=== PATIENT | female | born 1980 | race Caucasian/White ===

== ENCOUNTER → 2017-04-28 | Outpatient (CLI) | payer OTHER | LOC: FIMAGING 09:00 | PROVIDERS: ATTEND Advanced Practice Midwife | DX: O09.513 Supervision of elderly primigravida, third trimester (principal); O36.5931 Maternal care for other known or suspected poor fetal growth, third trimester, fetus 1; O34.219 Maternal care for unspecified type scar from previous cesarean delivery; O44.43 Low lying placenta NOS or without hemorrhage, third trimester; Z3A.32 32 weeks gestation of pregnancy ==

== ENCOUNTER 2017-07-11 12:35 | Emergency (ER) | payer OTHER ==
--- NOTE | 2017-07-11 14:31 | EDPHY ---
H & P Stated Complaint: yellow productive cough, chest congestion x 3 days Time Seen by Provider: 07/11/17 14:19 HPI/ROS: CHIEF COMPLAINT: Cough, fever HISTORY OF PRESENT ILLNESS: Patient is a 37-year-old woman who is 4 weeks who presents to the emergency department complaining of a cough, fever up to 101 and mild chest burning for 3 days. Her cough has been productive for yellow sputum. She denies pleuritic pain. No leg swelling. No travel. No smoking. No pulmonary history. She was seen at the urgent care who was concerned about DVT and referred her here. She has a mildly sore throat. She has anterior lymphadenopathy. So moderate muscle aches particularly in the neck. REVIEW OF SYSTEMS: Constitutional: denies: chills, fever, recent illness, recent injury EENTM: denies: blurred vision, double vision, nose congestion Respiratory: See HPI Cardiac: denies: chest pain, irregular heart rate, lightheadedness, palpitations Gastrointestinal/Abdominal: denies: abdominal pain, diarrhea, nausea, vomiting, blood streaked stools Genitourinary: denies: dysuria, frequency, hematuria, pain Musculoskeletal: denies: joint pain, muscle pain Skin: denies: lesions, rash, jaundice, bruising Neurological: denies: headache, numbness, paresthesia, tingling, dizziness, weakness Hematologic/Lymphatic: denies: blood clots, easy bleeding, easy bruising Immunologic/allergic: denies: HIV/AIDS, transplant EXAM: GENERAL: Well-appearing, well-nourished and in no acute distress. HEAD: Atraumatic, normocephalic. EYES: Pupils equal round and reactive to light, extraocular movements intact, sclera anicteric, conjunctiva are normal. ENT: TMs normal, nares patent, oropharynx clear without exudates. Moist mucous membranes. NECK: Normal range of motion, supple without lymphadenopathy or JVD. LUNGS: Breath sounds clear to auscultation bilaterally and equal. No wheezes rales or rhonchi. HEART: Regular rate and rhythm without murmurs, rubs or gallops. ABDOMEN: Soft, nontender, normoactive bowel sounds. No guarding, no rebound. No masses appreciated. BACK: No CVA tenderness, no spinal tenderness, step-offs or deformities EXTREMITIES: Normal range of motion, no pitting or edema. No clubbing or cyanosis. NEUROLOGICAL: Cranial nerves II through XII grossly intact. Normal speech, normal gait. 5/5 strength, normal movement in all extremities, normal sensation PSYCH: Normal mood, normal affect. SKIN: Warm, dry, normal turgor, no visible rashes or lesions. Source: Patient Exam Limitations: No limitations - Personal History LMP (Females 10-55): Over 28 Days Ago Current Tetanus/Diphtheria Vaccine: Unsure Current Tetanus Diphtheria and Acellular Pertussis (TDAP): Unsure - Medical/Surgical History Hx Asthma: No Hx Chronic Respiratory Disease: No Hx Diabetes: No Hx Cardiac Disease: No Hx Renal Disease: No Hx Cirrhosis: No Hx Alcoholism: No Hx HIV/AIDS: No Hx Splenectomy or Spleen Trauma: No Other PMH: v-maría 07/10 - Family History Significant Family History: No pertinent family hx - Social History Smoking Status: Never smoked Alcohol Use: Sober Drug Use: None Constitutional: Initial Vital Signs Temperature (C) 37.1 C 07/11/17 12:48 Heart Rate 78 07/11/17 12:48 Respiratory Rate 16 07/11/17 12:48 Blood Pressure 100/66 07/11/17 12:48 O2 Sat (%) 97 07/11/17 12:48 O2 Delivery Mode Room Air Allergies/Adverse Reactions: No Known Allergies Allergy (Unverified 07/11/17 12:37) Home Medications: Medication Instructions Recorded Azithromycin [Zithromax] 250 mg PO DAILY #6 tab 07/11/17 Lactobacil 2-S.thermo-Bifido 1 1 each PO DAILY #30 packet 07/11/17 [VSL#3 DS PACKET] Nardil 07/11/17 Medical Decision Making ED Course/Re-evaluation: Patient's symptoms are consistent with bronchitis versus pneumonia. I have a low suspicion for PE. She is not tachycardic or hypoxic. She does not have any chest pain. No leg pain or swelling. Her only risk factors recent delivery. Her Wells score is less than 2. She understands that we cannot completely rule out PE however I think a D-dimer would be unhelpful because of her acute illness. We agreed not to do imaging at this time. She is concerned about the breast tissue currently being breast-feeding. Her who is a nurse who is in agreement with our plan. I will start her on azithromycin and send a respiratory swab. I advised her to return immediately if she feels worse and to follow up within 24 hours. Differential Diagnosis: Partial list of the Differential diagnosis considered include but were not limited to; bronchitis, pneumonia and although unlikely based on the history and physical exam, I also considered PE, pneumothorax, acute coronary disease. - Data Points Medications Given: Discontinued Medications Azithromycin (Zithromax) 500 mg PO EDNOW ONE PRN Reason: Protocol Stop: 07/11/17 14:36 Last Admin: 07/11/17 14:38 Dose: Not Given Departure - Departure Disposition: Home, Routine, Self-Care Clinical Impression: Acute bronchitis Qualifiers: Bronchitis organism: other organism Qualified Code(s): J20.8 - Acute bronchitis due to other specified organisms Condition: Fair Instructions: Acute Bronchitis (ED) Referrals: NONE *PRIMARY CARE P,. [Primary Care Provider] - As per Instructions Stephanie Nascimento MD [Medical Doctor] - As per Instructions Prescriptions: Azithromycin [Zithromax] 250 mg PO DAILY #6 tab Lactobacil 2-S.thermo-Bifido 1 [VSL#3 DS PACKET] 1 each PO DAILY #30 packet
[2017-07-11] MEDS: AZITHROMYCIN 250 MG TAB PO ONE (14:38)
[2017-07-11 14:52] VITALS: BP 111/68; PULSE 63; RESP 18; TEMP 98.4; O2SAT 93
== END 2017-07-11 14:53 | disposition home or self-care (01) ==
DX: O99.89 Other specified diseases and conditions complicating pregnancy, childbirth and the puerperium (principal); J20.8 Acute bronchitis due to other specified organisms